=== PATIENT | male | born 1985 | race Caucasian/White ===

== ENCOUNTER 2017-08-03 13:41 | Emergency (ER) | payer MEDICAID ==
[~2017-08-03] VITALS: Ht 180.3 cm; Wt 65.5 kg
[2017-08-03 13:57] VITALS: BP 115/81
== END 2017-08-03 14:45 | disposition home or self-care (01) ==
LOC: ER 13:41
DX: R07.0 Pain in throat (principal); F12.90 Cannabis use, unspecified, uncomplicated; Z87.891 Personal history of nicotine dependence
CPT/HCPCS: 99281

== ENCOUNTER 2017-08-13 15:19 | Emergency (ER) | payer MEDICAID ==
[~2017-08-13] VITALS: Ht 180.3 cm; Wt 49.0 kg
[2017-08-13 18:59] VITALS: BP 142/108
[2017-08-13] MEDS ORDERED: PANT-47 PO (20:14)
== END 2017-08-13 20:24 | disposition home or self-care (01) ==
LOC: ER 15:20
DX: J02.9 Acute pharyngitis, unspecified (principal); F12.90 Cannabis use, unspecified, uncomplicated
CPT/HCPCS: 99283

== ENCOUNTER 2017-08-20 07:28 | Emergency (ER) | payer MEDICAID, OTHER ==
[~2017-08-20] VITALS: Ht 182.9 cm; Wt 68.2 kg
[~2017-08-20 07:28] MED LIST: PANT-47 PO
[2017-08-20 08:02] VITALS: BP 145/76
[2017-08-20] MEDS ORDERED: NYST1000 PO (08:17)
== END 2017-08-20 09:38 | disposition home or self-care (01) ==
LOC: ER 07:29
DX: B37.9 Candidiasis, unspecified (principal); F12.90 Cannabis use, unspecified, uncomplicated; Z79.899 Other long term (current) drug therapy
CPT/HCPCS: 99283

== ENCOUNTER 2017-09-02 09:49 | Emergency (ER) | payer BC ==
[~2017-09-02] VITALS: Ht 180.3 cm; Wt 63.0 kg
[2017-09-02 10:11] VITALS: BP 138/85
== END 2017-09-02 12:09 | disposition home or self-care (01) ==
LOC: ER 09:50
DX: J02.9 Acute pharyngitis, unspecified (principal); F12.90 Cannabis use, unspecified, uncomplicated
CPT/HCPCS: 87070; 99284

== ENCOUNTER 2017-09-08 13:22 | Emergency (ER) | payer BC ==
[~2017-09-08] VITALS: Ht 180.3 cm; Wt 66.5 kg
[2017-09-08] MEDS ORDERED: ketorolac trometh inj. 60 MG/2 ML VIAL IM ONE (14:40)
[2017-09-08 14:59] VITALS: BP 139/88
== END 2017-09-08 15:00 | disposition home or self-care (01) ==
LOC: ER 13:23
DX: R51 Headache (principal); R07.89 Other chest pain; H53.149 Visual discomfort, unspecified; F12.90 Cannabis use, unspecified, uncomplicated
CPT/HCPCS: 93005; 96372; 99283; J1885

== ENCOUNTER 2017-09-10 15:00 | Emergency (ER) | payer BC ==
[~2017-09-10] VITALS: Ht 180.3 cm; Wt 66.0 kg
[2017-09-10 16:35] VITALS: BP 118/67
== END 2017-09-10 16:44 | disposition home or self-care (01) ==
LOC: ER 15:14
DX: J31.2 Chronic pharyngitis (principal); G89.29 Other chronic pain; R51 Headache; F12.90 Cannabis use, unspecified, uncomplicated
CPT/HCPCS: 99281

== ENCOUNTER 2017-09-13 18:41 | Emergency (ER) | payer BC ==
[~2017-09-13] VITALS: Ht 182.9 cm; Wt 71.0 kg
[2017-09-13] MEDS ORDERED: PERM60CR4 TOP (18:56)
[2017-09-13 19:34] VITALS: BP 136/86
== END 2017-09-13 19:36 | disposition home or self-care (01) ==
LOC: ER 18:41
DX: B86 Scabies (principal); F12.90 Cannabis use, unspecified, uncomplicated
CPT/HCPCS: 99282

== ENCOUNTER 2017-09-20 10:08 | Emergency (ER) | payer BC ==
[~2017-09-20] VITALS: Ht 180.3 cm; Wt 67.0 kg
[~2017-09-20 10:08] MED LIST changes: -PANT-47 PO; +PERM60CR4 TOP
[2017-09-20 10:20] VITALS: BP 153/90
[2017-09-20] MEDS ORDERED: CefTRIAXone 1000mg IM Kit (w/lidocaine diluent) IM ONE (10:25)
[2017-09-20] MEDS ORDERED: azithromycin 250mg tablet PO ONE (10:25)
== END 2017-09-20 10:54 | disposition home or self-care (01) ==
LOC: ER 10:09
DX: A64 Unspecified sexually transmitted disease (principal); F12.90 Cannabis use, unspecified, uncomplicated
CPT/HCPCS: 36415; 87491; 87591; 96372; 99284; J0696

== ENCOUNTER 2017-10-01 17:20 | Emergency (ER) | payer BC ==
[~2017-10-01] VITALS: Ht 180.3 cm; Wt 66.5 kg
[2017-10-01 18:40] VITALS: BP 142/98
== END 2017-10-01 19:14 | disposition home or self-care (01) ==
LOC: ER 17:21
DX: R51 Headache (principal); F12.90 Cannabis use, unspecified, uncomplicated; H57.13 Ocular pain, bilateral
CPT/HCPCS: 99283

== ENCOUNTER 2017-10-09 12:34 | Day surgery (SDC) | payer BC ==
[~2017-10-09] VITALS: Ht 180.3 cm; Wt 67.8 kg
[~2017-10-09 12:34] MED LIST changes: +BUPIVAcaine/PF 2.5mg/ml (0.25%) 10ml vial ONE; +LIDOcaine 1%/PF 5ML 10 MG/ML VIAL ONE
[2017-10-09] MEDS ORDERED: LIDOcaine 1%/PF 5ML 10 MG/ML VIAL ONE (12:35)
[2017-10-09 12:45] VITALS: BP 140/93
[2017-10-09] MEDS ORDERED: IBUP-1985 PO (13:08)
== END 2017-10-09 13:34 | disposition home or self-care (01) ==
LOC: SSTAY O 12:34
PROVIDERS: ATTEND Family Medicine
DX: R51 Headache (principal); Z53.8 Procedure and treatment not carried out for other reasons; R20.0 Anesthesia of skin; M62.81 Muscle weakness (generalized); G62.9 Polyneuropathy, unspecified; I10 Essential (primary) hypertension; F17.210 Nicotine dependence, cigarettes, uncomplicated; F12.90 Cannabis use, unspecified, uncomplicated; Z20.2 Contact with and (suspected) exposure to infections with a predominantly sexual mode of transmission; Z79.1 Long term (current) use of non-steroidal anti-inflammatories (NSAID); Z98.890 Other specified postprocedural states; Z79.899 Other long term (current) drug therapy
CPT/HCPCS: J2001; J3490

== ENCOUNTER 2017-10-12 08:01 | Day surgery (SDC) | payer BC ==
[2017-10-12] VITALS (7 sets, daily range): BP systolic 115–141; BP diastolic 67–90
[~2017-10-12] VITALS: Ht 180.3 cm; Wt 67.6 kg
[~2017-10-12 08:01] MED LIST changes: -BUPIVAcaine/PF 2.5mg/ml (0.25%) 10ml vial ONE; +IBUP-1985 PO; -LIDOcaine 1%/PF 5ML 10 MG/ML VIAL ONE
[2017-10-12 09:05] LABS: BASOPHILS % (AUTO) 0.6 % (0-1); EOSINOPHILS # (AUTO) 0.1 X10'3 (0-0.9); EOSINOPHILS % (AUTO) 2.9 % (0-6); HEMOGLOBIN 15.8 g/dl (14.0-17.9); LYMPHOCYTES % (AUTO) 44.4 % (21-51); MEAN CORPUSCULAR HEMOGLOBIN 33.6 PG (27.0-31.0); MEAN CORPUSCULAR HGB CONC 34.3 % (33.0-36.5); MEAN CORPUSCULAR VOLUME 98.1 FL (78-98); MEAN PLATELET VOLUME 7.9 FL (7.4-10.4); MONOCYTES # (AUTO) 0.4 X10'3 (0-0.9); MONOCYTES % (AUTO) 9.5 % (2-12); NEUTROPHILS # (AUTO) 1.9 X10'3 (1.8-7.7); NEUTROPHILS % (AUTO) 42.6 % (42-75); PLATELET COUNT 190 X10'3 (140-440); RED BLOOD COUNT 4.69 X10'6 (4.70-6.10); RED CELL DISTRIBUTION WIDTH 12.1 % (11.5-14.5); WHITE BLOOD COUNT 4.5 X10'3 (4.5-11.0)
[2017-10-12 09:15] LABS: INR 1.1 INR; PROTHROMBIN TIME 11.4 SECONDS (9.0-12.0)
[2017-10-12] MEDS ORDERED: LIDOcaine 1%/PF 5ML 10 MG/ML VIAL ONE (09:43)
[2017-10-12] MEDS ORDERED: HYDROcodone/acetaminophen 5mg/325mg tablet PO PRN (10:20)
[2017-10-12 10:28] LABS: RHEUM FACTOR QUAL REFLEX TITER NEGATIVE (Neg)
[2017-10-12 10:43] LABS: ALANINE AMINOTRANSFERASE 28 U/L (12-78); ALBUMIN 4.2 G/DL (3.4-5.0); ALBUMIN/GLOBULIN RATIO 1.5 (1.1-1.5); ALKALINE PHOSPHATASE 49 IU/L (46-116); ANION GAP 8 (8-16); ASPARTATE AMINO TRANSFERASE 16 U/L (10-37); BILIRUBIN,TOTAL 1.2 MG/DL (0.1-1.0); BLOOD UREA NITROGEN 11 MG/DL (7-18); BUN/CREATININE RATIO 11.2 (5.4-32.0); CHLORIDE 103 MMOL/L (99-107); CREATININE 0.98 MG/DL (0.60-1.10); GLUCOSE 98 MG/DL (70-104); SODIUM 138 MMOL/L (135-145); TOTAL CARBON DIOXIDE 26.8 MMOL/L (24-32); eGFR 88 ML/MIN
[2017-10-12 11:47] LABS: GLUCOSE,CSF 58 MG/DL (40-75); TOTAL PROTEIN,CSF 61 MG/DL (15-45)
[2017-10-12 12:02] LABS: APPEARANCE,CSF CLEAR; CSF RBC 0 /CU MM (0); CSF SUPERNATANT COLOR COLORLESS; CSF VOLUME 13 ML; CSF WBC CT 2 /CU MM (0-5); TUBE# COUNTED 4
[2017-10-12 12:03] LABS: APPEARANCE,CSF CLEAR; CSF RBC 3 /CU MM (0); CSF SUPERNATANT COLOR COLORLESS; CSF VOLUME 13 ML; CSF WBC CT 1 /CU MM (0-5); TUBE# COUNTED 1
[2017-10-12 12:04] LABS: APPEARANCE,CSF CLEAR; CSF RBC 1 /CU MM (0); CSF SUPERNATANT COLOR COLORLESS; CSF VOLUME 13 ML; CSF WBC CT 2 /CU MM (0-5); TUBE# COUNTED 2
[2017-10-12 12:05] LABS: APPEARANCE,CSF CLEAR; CSF RBC 1 /CU MM (0); CSF SUPERNATANT COLOR COLORLESS; CSF VOLUME 13 ML; CSF WBC CT 2 /CU MM (0-5); TUBE# COUNTED 3
[2017-10-13 11:16] LABS: IMMUNOGLOBULIN A, QN, SERUM 308 mg/dL (90-386); IMMUNOGLOBULIN G, QN, SERUM 724 mg/dL (700-1600); IMMUNOGLOBULIN M, QN, SERUM 103 mg/dL (20-172)
[2017-10-14 06:51] LABS: ANTINUCLEAR ANTIBODIES Negative (Negative)
[2017-10-14 09:53] LABS: ANGIOTESIN-CONVERTING ENZYME 24 U/L (14-82)
[2017-10-15 13:24] LABS: IMMUNOGLOBULIN M, QN, CSF 0.03 mg/dL (0.00-0.26)
[2017-10-15 18:05] LABS: IMMUNOGLOBULIN G, QN CSF 2.9 mg/dL (0.0-8.6)
== END 2017-10-12 12:46 | disposition home or self-care (01) ==
LOC: RAD 08:01 → SSTAY O 12:46
PROVIDERS: ATTEND Family Medicine
DX: G35 Multiple sclerosis (principal); R51 Headache; R20.0 Anesthesia of skin; G62.9 Polyneuropathy, unspecified; I10 Essential (primary) hypertension; G89.29 Other chronic pain; F17.210 Nicotine dependence, cigarettes, uncomplicated; F12.90 Cannabis use, unspecified, uncomplicated; M62.81 Muscle weakness (generalized); Z20.2 Contact with and (suspected) exposure to infections with a predominantly sexual mode of transmission; Z79.1 Long term (current) use of non-steroidal anti-inflammatories (NSAID); Z98.890 Other specified postprocedural states
CPT/HCPCS: 36415; 62270; 77003; 80053; 82040; 82042; 82164; 82607; 82784; 82945; 83873; 83916; 84157; 84166; 85025; 85610; 85651; 86038; 86334; 86335; 86361; 86430; 86592; 86617; 86762; 86765; 87102; 87210; 87798; 87899; 89051; J2001; 77002

== ENCOUNTER 2017-10-25 16:07 | Emergency (ER) | payer BC ==
[~2017-10-25] VITALS: Ht 180.3 cm; Wt 68.0 kg
[~2017-10-25 16:07] MED LIST changes: +ACET-2119 PO; -IBUP-1985 PO; +LISI-604 PO; -PERM60CR4 TOP; +PHE12.5T PO
[2017-10-25 16:21] VITALS: BP 144/88
[2017-10-25] MEDS ORDERED: normal saline 1000ML IV soln IVB ONE (18:50)
== END 2017-10-25 21:09 | disposition home or self-care (01) ==
LOC: ER 16:08
DX: R51 Headache (principal); F12.90 Cannabis use, unspecified, uncomplicated; Z79.899 Other long term (current) drug therapy
CPT/HCPCS: 99285; J7030

== ENCOUNTER 2018-01-31 14:22 | Emergency (ER) | payer BC, MEDICAID ==
[~2018-01-31] VITALS: Ht 180.3 cm; Wt 71.0 kg
[~2018-01-31 14:22] MED LIST changes: -ACET-2119 PO
[2018-01-31 14:35] VITALS: BP 122/95
== END 2018-01-31 14:52 | disposition home or self-care (01) ==
LOC: ER 14:22
DX: S06.9X0A Unspecified intracranial injury without loss of consciousness, initial encounter (principal); F12.90 Cannabis use, unspecified, uncomplicated; Z60.2 Problems related to living alone; Z79.899 Other long term (current) drug therapy; X58.XXXA Exposure to other specified factors, initial encounter; Y93.89 Activity, other specified; Y92.89 Other specified places as the place of occurrence of the external cause; Y99.8 Other external cause status
CPT/HCPCS: 99281

== ENCOUNTER 2018-02-14 11:16 | Emergency (ER) | payer MEDICAID ==
[~2018-02-14] VITALS: Ht 180.3 cm; Wt 69.0 kg
[2018-02-14 11:33] VITALS: BP 171/96
[2018-02-14] MEDS ORDERED: ketorolac trometh inj. 60 MG/2 ML VIAL IM ONE (12:15)
== END 2018-02-14 12:30 | disposition home or self-care (01) ==
LOC: ER 11:16
DX: M79.602 Pain in left arm (principal); F12.90 Cannabis use, unspecified, uncomplicated; Z88.2 Allergy status to sulfonamides; Z88.1 Allergy status to other antibiotic agents; Z79.899 Other long term (current) drug therapy
CPT/HCPCS: 96372; 99283; J1885

== ENCOUNTER 2018-03-12 07:41 | Outpatient (CLI) | payer MEDICAID | END 2018-03-12 23:59 | disposition home or self-care (01) | LOC: RAD 07:41 | DX: R51 Headache (principal); G97.1 Other reaction to spinal and lumbar puncture; I10 Essential (primary) hypertension | CPT/HCPCS: 95816 ==

== ENCOUNTER 2020-11-21 03:59 | Emergency (ER) | payer MEDICARE, MEDICAID ==
[~2020-11-21] VITALS: Ht 180.3 cm; Wt 66.3 kg
[~2020-11-21 03:59] MED LIST changes: -LISI-604 PO; +LISI-790 PO; -PHE12.5T PO; +PROM12.512 PO
[2020-11-21] MEDS ORDERED: gabapentin 400mg capsule PO STA (04:51)
[2020-11-21] MEDS ORDERED: GABA-534 PO (04:55)
[2020-11-21] MEDS ORDERED: ibuprofen tablet 400 MG TABLET PO ONE (04:55)
[2020-11-21] MEDS ORDERED: IBUP-1984 PO (04:55)
[2020-11-21 05:40] VITALS: BP 137/87
== END 2020-11-21 05:47 | disposition home or self-care (01) ==
LOC: ER 03:59
DX: M54.2 Cervicalgia (principal); F12.90 Cannabis use, unspecified, uncomplicated; Z72.89 Other problems related to lifestyle; Z60.2 Problems related to living alone; Z88.2 Allergy status to sulfonamides; Z88.1 Allergy status to other antibiotic agents; Z79.899 Other long term (current) drug therapy
CPT/HCPCS: 99283

== ENCOUNTER 2020-12-09 17:58 | Emergency (ER) | payer MEDICARE, MEDICAID ==
[~2020-12-09] VITALS: Ht 180.3 cm; Wt 68.2 kg
[~2020-12-09 17:58] MED LIST changes: +GABA-534 PO; +IBUP-1984 PO
[2020-12-09] MEDS ORDERED: tranexamic acid 1gm/0.7% sal. 100 ML IV ONE (18:25)
[2020-12-09 19:02] LABS: BASOPHILS % (AUTO) 0.9 % (0-1); EOSINOPHILS # (AUTO) 0.1 X10'3 (0-0.9); EOSINOPHILS % (AUTO) 2.2 % (0-6); HEMATOCRIT 41.8 % (42.0-52.0); HEMOGLOBIN 14.4 g/dl (14.0-17.9); LYMPHOCYTES # (AUTO) 2.5 X10'3 (1.1-4.8); LYMPHOCYTES % (AUTO) 50.1 % (21-51); MEAN CORPUSCULAR HEMOGLOBIN 33.2 PG (27.0-31.0); MEAN CORPUSCULAR HGB CONC 34.4 g/dL (33.0-36.5); MEAN CORPUSCULAR VOLUME 96.3 FL (78-98); MEAN PLATELET VOLUME 8.7 FL (7.4-10.4); MONOCYTES # (AUTO) 0.5 X10'3 (0-0.9); MONOCYTES % (AUTO) 10.1 % (2-12); NEUTROPHILS # (AUTO) 1.8 X10'3 (1.8-7.7); NEUTROPHILS % (AUTO) 36.7 % (42-75); PLATELET COUNT 216 X10'3 (140-440); RED BLOOD COUNT 4.34 X10'6 (4.70-6.10); RED CELL DISTRIBUTION WIDTH 12.6 % (11.5-14.5)
[2020-12-09 19:12] LABS: PARTIAL THROMBOPLASTIN TIME 27 SECONDS (22-32)
[2020-12-09 19:18] LABS: ALANINE AMINOTRANSFERASE 19 U/L (12-78); ALBUMIN 3.8 G/DL (3.4-5.0); ALBUMIN/GLOBULIN RATIO 1.2 (1.1-1.5); ALKALINE PHOSPHATASE 57 IU/L (46-116); ANION GAP 10 (8-16); ASPARTATE AMINO TRANSFERASE 13 U/L (10-37); BILIRUBIN,TOTAL 0.3 MG/DL (0.1-1.0); BLOOD UREA NITROGEN 18 MG/DL (7-18); BUN/CREATININE RATIO 17.6 (5.4-32.0); CALCIUM 8.7 MG/DL (8.5-10.1); CHLORIDE 107 MMOL/L (99-107); CREATININE 1.02 MG/DL (0.60-1.10); GLUCOSE 127 MG/DL (70-104); POTASSIUM 3.4 MMOL/L (3.5-5.1); SODIUM 144 MMOL/L (135-145); TOTAL CARBON DIOXIDE 27.3 MMOL/L (24-32); TOTAL PROTEIN 7.1 G/DL (6.4-8.2); eGFR 83 ML/MIN
--- NOTE | 2020-12-09 19:45 | NUR ---
PT SPITTING UP BRIGHT RED BLOOD FROM THROAT. PT STATES HE IS HAVING TO SPIT IT OUT EVERY 5-10 SECONDS AND CAN FEEL IT RUNNING DOWN HIS THROAT. PT AIRWAY PATENT BUT PT ENCOURAGED TO REST AIRWAY AND TRY NOT TO SPEAK. WILL CONTINUE TO EVALUATE
[2020-12-09 20:02] LABS: BASOPHILS # (AUTO) 0.1 X10'3 (0-0.2); EOSINOPHILS # (AUTO) 0.1 X10'3 (0-0.9); EOSINOPHILS % (AUTO) 1.7 % (0-6); HEMATOCRIT 41.3 % (42.0-52.0); HEMOGLOBIN 14.1 g/dl (14.0-17.9); LYMPHOCYTES # (AUTO) 2.1 X10'3 (1.1-4.8); LYMPHOCYTES % (AUTO) 38.5 % (21-51); MEAN CORPUSCULAR HEMOGLOBIN 33.1 PG (27.0-31.0); MEAN CORPUSCULAR HGB CONC 34.2 g/dL (33.0-36.5); MEAN CORPUSCULAR VOLUME 96.9 FL (78-98); MEAN PLATELET VOLUME 8.4 FL (7.4-10.4); MONOCYTES # (AUTO) 0.6 X10'3 (0-0.9); MONOCYTES % (AUTO) 11.6 % (2-12); NEUTROPHILS # (AUTO) 2.5 X10'3 (1.8-7.7); NEUTROPHILS % (AUTO) 47.2 % (42-75); PLATELET COUNT 201 X10'3 (140-440); RED BLOOD COUNT 4.27 X10'6 (4.70-6.10); RED CELL DISTRIBUTION WIDTH 12.8 % (11.5-14.5); WHITE BLOOD COUNT 5.4 X10'3 (4.5-11.0)
--- NOTE | 2020-12-09 22:00 | NUR ---
PT HAS STOPPED SPITTING UP BLOOD AND IS NOW BEING HELD FOR OBSERVATION FOR 24 HRS
[2020-12-10 06:25] VITALS: BP 98/56
== END 2020-12-10 06:26 | disposition home or self-care (01) ==
LOC: ER 17:59
DX: K91.61 Intraoperative hemorrhage and hematoma of a digestive system organ or structure complicating a digestive system procedure (principal); Z20.822 Contact with and (suspected) exposure to COVID-19; F12.90 Cannabis use, unspecified, uncomplicated; Z72.89 Other problems related to lifestyle; Z88.2 Allergy status to sulfonamides; Z88.1 Allergy status to other antibiotic agents; Z79.899 Other long term (current) drug therapy; Y83.8 Other surgical procedures as the cause of abnormal reaction of the patient, or of later complication, without mention of misadventure at the time of the procedure; Y73.3 Surgical instruments, materials and gastroenterology and urology devices (including sutures) associated with adverse incidents
CPT/HCPCS: 36415; 80053; 85025; 85610; 85730; 86885; 86900; 86901; 87635; 96365; 96366; 99285; C9803

== ENCOUNTER 2024-12-09 12:01 | Emergency (ER) | payer MEDICARE, MEDICAID ==
[~2024-12-09] VITALS: Ht 180.3 cm; Wt 69.4 kg
[~2024-12-09 12:01] MED LIST changes: -GABA-534 PO; +GABA-535 PO; -IBUP-1984 PO; -LISI-790 PO; +LISI5TAB22 PO
[2024-12-09 12:02] VITALS: TEMP 97.3
[2024-12-09 12:33] LABS: MEAN PLATELET VOLUME 7.7 FL (7.4-10.4); RED CELL DISTRIBUTION WIDTH 13.2 % (11.5-14.5)
[2024-12-09 12:48] LABS: CREATININE 0.92 MG/DL (0.60-1.10); TOTAL CARBON DIOXIDE 28.2 MMOL/L (24-32); eCRCL 105 ML/MIN; eGFR > 90 ML/MIN
[2024-12-09 13:05] LABS: BASOPHILS % (MANUAL) 1.0 % (0-1); EOSINOPHILS % (MANUAL) 1.0 % (0-6); LYMPHOCYTES % (MANUAL) 57.0 % (21-51); MONOCYTES % (MANUAL) 4.0 % (2-12); NEUTROPHILS % (MANUAL) 37.0 % (42-75); PLATELET ESTIMATE NORMAL
[2024-12-09] MEDS: ketorolac trometh 15mg/ml vial 15 MG/ML ML IV ONE (14:37)
[2024-12-09] MEDS: normal saline 1000ML IV soln IVB ONE (14:38)
[2024-12-09] MEDS ORDERED: iohexol 300mg/ml 100ml inj. ONE (15:11)
--- NOTE | 2024-12-09 16:07 | RADIOLOGY REPORT ---
Indication: LLQ pain with diffuse tenderness to palpation. Technique: CT axial images of the abdomen and pelvis are obtained with intravenous contrast. Coronal and sagittal reformats were obtained. Radiation Dose Information: CTDI volume is 8 mGy. Dose-length product is 396 mGy*cm Comparison: None FINDINGS: Lung bases demonstrate no pleural effusion. Adrenal glands, spleen, pancreas unremarkable. No enhancing hepatic lesion. No CT evidence for cholelithiasis. Kidneys demonstrate no hydronephrosis. Stomach is partially distended. Small bowel loops are normal in caliber. Moderate fluid distention of the large bowel. No secondary signs for appendicitis. Bowel wall thickening of the rectosigmoid and descending colon. Abdominal aorta normal in caliber. Bladder partially distended. No free pelvic fluid. No inguinal lymphadenopathy. No aggressive osseous process. [id number]-[id number] thoracolumbar degenerative disc disease most pronounced at L4-5. IMPRESSION: Moderate fluid distention large bowel could represent colitis, diarrheal state. Mild bowel wall thickening of the descending rectosigmoid colon, may represent colitis, inflammatory bowel disease
--- NOTE | 2024-12-09 16:20 | Physician Documentation ---
History of Present Illness Chief Complaint: Abdominal Pain Stated Complaint: MULTIPLE MED ISSUES Time Seen by MD: 13:54 Primary Medical Doctor: Shahnaz Veloz; Dr. Blackwood- neurologist Source: patient Mode of Arrival: POV Exam Limitations: no limitations HPI 39-year-old male presents with left lower quadrant pain. He was seen at [facility] yesterday and was discharged home. He reports that the pain has continued since. He was worried about being constipated so we did take some prune juice and did have a bout of diarrhea after the prune juice. Otherwise he has not been having any bowel irregularities. Denies any fevers, nausea or vomiting. States that the pain feels like a squeezing pressure sensation. Reports he did not receive any medication or imaging while he was at [facility] yesterday. Medication Reconciliation Allergies: Coded Allergies: Sulfa (Sulfonamide Antibiotics) (Verified Allergy, Intermediate, 12/09/24) amoxicillin (Verified Allergy, Intermediate, 12/09/24) Scheduled Gabapentin (Gabapentin), 1 CAP PO DAILY Lisinopril (Lisinopril), 1 TAB PO DAILY Scheduled PRN Promethazine Hcl (Phenergan), 12.5 MG PO 5XD PRN for nausea Past Medical History Past Medical History: No Pertinent History, Headache Past Surgical History: noncontributory Alcohol Use: Occasionally Drug Use: marijuana Lives with: Alone Lives In: Home Review of Systems All Other Systems at this time: Reviewed and Negative Physical Exam Vital Signs: RN Vital Signs have been reviewed: Yes, Temperature: 97.3, Source: Temporal, Heart Rate: 72, Respiratory Rate: 18, BP: 134/97, Pulse Oximetry: 100, Weight: 69.400 Oxygen Flow Rate: 0 Pulse Oximetry Reflects: adequate oxygenation Physical Exam General: Alert, no apparent distress. HEENT: PERRL, EOMI, no injection, moist mucous membranes. Neck: Full range of motion. Respiratory: Lungs clear, no respiratory distress. Chest: No accessory muscle use. Cardiovascular: Regular rate and rhythm, no murmurs. Gastrointestinal: LLQ firm, tender, nondistended. Bowels sounds present. No guarding or rebound tenderness. Extremities: Normal range of motion, no deformity. Neurologic: Oriented x4. Psychiatric: Normal mood and affect. Skin: Normal color, warm and dry. No edema, no ecchymosis. Progress Results/Orders Reviewed/noted all lab results: Yes Results/Orders Orders - MIKE SPARKS WAITER/WAITRESS FORMAL Saline Lock (12/09/24 ) Ct Abdomen Pelvis (12/09/24 14:13) Completed Orders - MIKE SPARKS WAITER/WAITRESS FORMAL Ct Abdomen Pelvis (12/09/24 14:13) Ketorolac Trometh 15mg/Ml Vial (Toradol (12/09/24 14:15) Normal Saline 1000ml (0.9% Sodium Chlori (12/09/24 14:15) Iohexol 300mg/Ml 100ml Inj. (Omnipaque-3 (12/09/24 15:11) Medications Received in ER Medications (Trade) Dose Ordered Sig/Amy Route PRN Reason Start Time Stop Time Status Last Admin Dose Admin (Toradol injection) 15 mg ONCE ONCE IV 12/09/24 14:15 12/09/24 14:16 DC 12/09/24 14:37 15 MG (0.9% sodium chloride (NS) 1000ml IV soln) 1,000 ml ONCE ONCE IVB 12/09/24 14:15 12/09/24 14:16 DC 12/09/24 14:38 1,000 ML Vital Signs 12/09/24 12/09/24 12/09/24 12/09/24 12:02 12:27 13:14 14:37 Temp 97.3 Pulse 117 85 Resp 16 18 16 B/P (MAP) 147/100 125/74 (91) Pulse Ox 100 97 O2 Flow Rate 0 0 12/09/24 14:40 Pulse 72 Resp 18 B/P (MAP) 134/97 (109) Pulse Ox 100 O2 Flow Rate 0 Laboratory Tests Test 12/09/24 12:23 White Blood Count 3.7 L Red Blood Count 4.92 Hemoglobin 15.6 Hematocrit 45.6 Mean Corpuscular Volume 92.7 Mean Corpuscular Hemoglobin 31.8 H Mean Corpuscular Hemoglobin Concent 34.3 Red Cell Distribution Width 13.2 Platelet Count 191 Mean Platelet Volume 7.7 Neutrophils (%) (Auto) 31.1 L Lymphocytes (%) (Auto) 54.9 H Monocytes (%) (Auto) 11.6 Eosinophils (%) (Auto) 1.5 Basophils (%) (Auto) 0.9 Neutrophils # (Auto) 1.1 L Lymphocytes # (Auto) 2.0 Monocytes # (Auto) 0.4 Eosinophils # (Auto) 0.1 Basophils # (Auto) 0.0 CBC Comment Differential Total Cells Counted 100 Neutrophils % (Manual) 37.0 L Lymphocytes % (Manual) 57.0 H Monocytes % (Manual) 4.0 Eosinophils % (Manual) 1.0 Basophils % (Manual) 1.0 Platelet Estimate Normal Red Blood Cell Morphology Normal Basophilic Stippling Sodium Level 141 Potassium Level 3.8 Chloride Level 105 Carbon Dioxide Level 28.2 Anion Gap 8 Blood Urea Nitrogen 7 Creatinine 0.92 Estimated GFR/1.73 m2 > 90 BUN/Creatinine Ratio 7.6 L Glucose Level 102 Calcium Level 8.4 L Total Bilirubin 1.3 H Aspartate Amino Transf (AST/SGOT) 16 Alanine Aminotransferase (ALT/SGPT) 21 Alkaline Phosphatase 54 Total Protein 6.9 Albumin 3.9 Globulin 3.0 Albumin/Globulin Ratio 1.3 Lipase 27 Chemistry Comments EKG/XRAY/CT/US/VASC/MRI CT : Impression CT abdomen and pelvis with contrast as interpreted by me shows: No free air, no free pelvic fluid, no bowel obstruction. Moderate fluid distention large bowel. Mild bowel wall thickening of the descending rectosigmoid colon. Medical Decision Making Additional information obtaine: old records Findings He is having left lower quadrant pain and this is his 2nd ER visit. His CBC shows leukopenia, elevated lymphocytes and low neutrophils. He was given Toradol for the pain and a 1 L normal saline bolus due to contrast. He refuses to give a urine sample at this time. I discussed this case with Dr. Enamorado who recommended further imaging such as a CT with contrast. CT of abdomen and pelvis was obtained with contrast and it shows Moderate fluid distention large bowel could represent colitis, diarrheal state. Mild bowel wall thickening of the descending rectosigmoid colon, may represent colitis, inflammatory bowel disease. I discussed this case again with Dr. Enamorado regarding the results and he recommends Augmentin oral antibiotics and discharged home. He is allergic to amoxicillin so we will be doing metronidazole instead. Patient reports that he has never had symptoms like this before and does not have a history of colitis or irritable bowel disease. Patient was given strict return instructions as well as follow up instructions. Differential Dx:Considerations: AAA, Angina/ND, Bowel obstruction, Constipation, Diverticular disease, Gastritis/PUD, GI hemorrhage, Hernia, Ischemic bowel, Urinary tract infection Departure Disposition: 01 HOME / SELF CARE / HOMELESS Impression: Primary Impression: Abdominal pain Additional Impression: Colitis Condition: Stable Discharge Instructions: Abdominal Pain, Adult, [id number] Additional Instructions: Please take all antibiotics as prescribed and finish the course. Return back here for any new or worsening symptoms. Follow up with her primary care provider within the next week. Drink plenty of fluids. Referrals: NO PRIMARY CARE PROVIDER (PCP) Prescriptions Metronidazole* (Flagyl*) 500 Mg Tablet 1 TAB PO Q12H for 7 Days, #14 TAB Prov: MIKE SPARKS 12/09/24 Education Educated: Patient Educated regarding: diagnosis, treatment, prognosis, need for follow up Additional Comment Medical Screen Exam This patient recieved a medical screening examination. After reviewing the individual's medical complaints with presenting symptoms and performing an appropriate physical examination, it was determined that no immediate life- threatening emergency medical condition is present. This individual is also not a women having contractions. Signature Scribe Signature: . Attestation: Scribed for Mike Sparks by Mike Spann NP . 12/09/24 16:30 Parts of this note were created using [employer] voice recognition software program. While efforts were made to correct any mistakes made by this voice recognition software program, nonsensical phrases may remain in this note. In addition, there may be errors and syntax, grammar, content and spelling. MIKE SPARKS Dec 09, 2024 16:20
[2024-12-09 16:22] VITALS: BP 136/97; PULSE 80; RESP 18; O2SAT 98
[2024-12-09] MEDS ORDERED: METR-159 PO (16:29)
== END 2024-12-09 16:37 | disposition home or self-care (01) ==
LOC: ER 12:02
DX: K52.9 Noninfective gastroenteritis and colitis, unspecified (principal); F12.90 Cannabis use, unspecified, uncomplicated; Z88.2 Allergy status to sulfonamides; Z88.1 Allergy status to other antibiotic agents; Z79.899 Other long term (current) drug therapy; Z72.89 Other problems related to lifestyle; Z60.2 Problems related to living alone
CPT/HCPCS: 36415; 74177; 80053; 83690; 85007; 85025; 96361; 96374; 99285; J1885; J7030; Q9967

== ENCOUNTER 2024-12-10 15:20 | Emergency (ER) | payer MEDICARE, MEDICAID ==
[~2024-12-10] VITALS: Ht 180.3 cm; Wt 70.4 kg
[~2024-12-10 15:20] MED LIST changes: +METR-159 PO
--- NOTE | 2024-12-10 15:47 | Physician Documentation ---
History of Present Illness ~ Chief Complaint: Weakness Stated Complaint: ABDOMINAL PAIN Time Seen by MD: 17:41 OK to notify your PCP?: Yes Primary Medical Doctor: Shahnaz Veloz; Dr. Blackwood- neurologist Source: patient Mode of Arrival: POV Exam Limitations: no limitations HPI 39-year-old male presents for all-over body weakness, tingling and numbness and dizziness for some time. He was seen here last night for colitis and started on antibiotics. NIH 0 Medication Reconciliation Allergies: Coded Allergies: Sulfa (Sulfonamide Antibiotics) (Verified Allergy, Intermediate, 12/10/24) amoxicillin (Verified Allergy, Intermediate, 12/10/24) Scheduled Gabapentin (Gabapentin), 1 CAP PO DAILY Lisinopril (Lisinopril), 1 TAB PO DAILY Metronidazole* (Flagyl*), 1 TAB PO Q12H Scheduled PRN Promethazine Hcl (Phenergan), 12.5 MG PO 5XD PRN for nausea Past Medical History Past Medical History: No Pertinent History, Headache Past Surgical History: noncontributory Alcohol Use: Occasionally Drug Use: marijuana Lives with: Alone Lives In: Home Physical Exam Vital Signs: RN Vital Signs have been reviewed: Yes, Temperature: 97.0, Source: Temporal, Heart Rate: 89, Respiratory Rate: 20, BP: 128/92, Pulse Oximetry: 98, Weight: 70.400 Oxygen Flow Rate: 0 Pulse Oximetry Reflects: adequate oxygenation Physical Exam General: Alert, no distress. HEENT: No injection, moist mucous membranes. Neck: Full range of motion. Respiratory: No respiratory distress, equal chest rise and fall. Chest: No accessory muscle use. Cardiovascular: Regular rate and rhythm. Gastrointestinal: Nondistended. Nontender Extremities: Normal range of motion, no deformity. Neurologic: Oriented x4. nonfocal Psychiatric: Normal mood and affect. Skin: Normal color, warm and dry. Progress Results/Orders Results/Orders Vital Signs 12/10/24 12/10/24 12/10/24 15:24 17:36 18:31 Temp 97.0 97.0 Pulse 89 62 Resp 20 16 B/P (MAP) 128/92 129/92 (104) Pulse Ox 98 98 O2 Flow Rate 0 0 Laboratory Tests Test 12/10/24 17:11 White Blood Count 4.4 L Red Blood Count 4.71 Hemoglobin 15.2 Hematocrit 43.6 Mean Corpuscular Volume 92.6 Mean Corpuscular Hemoglobin 32.3 H Mean Corpuscular Hemoglobin Concent 34.8 Red Cell Distribution Width 13.2 Platelet Count 191 Mean Platelet Volume 7.7 Neutrophils (%) (Auto) 37.2 L Lymphocytes (%) (Auto) 50.7 Monocytes (%) (Auto) 9.4 Eosinophils (%) (Auto) 2.0 Basophils (%) (Auto) 0.7 Neutrophils # (Auto) 1.6 L Lymphocytes # (Auto) 2.2 Monocytes # (Auto) 0.4 Eosinophils # (Auto) 0.1 Basophils # (Auto) 0.0 CBC Comment Sodium Level 141 Potassium Level 3.7 Chloride Level 107 Carbon Dioxide Level 28.8 Anion Gap 5 L Blood Urea Nitrogen 9 Creatinine 0.86 Estimated GFR/1.73 m2 > 90 BUN/Creatinine Ratio 10.5 Glucose Level 99 Lactic Acid Level 0.6 Calcium Level 8.6 Phosphorus Level 3.1 Magnesium Level 1.8 Troponin I High Sensitivity 4 Albumin 3.8 Chemistry Comments Medical Decision Making Additional information obtaine: N/A Findings Unremarkable exam and workup. Discharge with return precautions. Differential Dx:Considerations: Include: anemia, encephalopathy, Guillain- [place], labyrinthitis, myasathenia gravis, pulmonary embolus, TIA, vertigo central Departure Disposition: 01 HOME / SELF CARE / HOMELESS Impression: Primary Impression: Constipation Condition: Stable Discharge Instructions: Constipation, Adult Referrals: NO PRIMARY CARE PROVIDER (PCP) Education Educated: Patient Educated regarding: diagnosis, treatment, prognosis, need for follow up Additional Comment Medical Screen Exam This patient recieved a medical screening examination. After reviewing the individual's medical complaints with presenting symptoms and performing an appropriate physical examination, it was determined that no immediate life- threatening emergency medical condition is present. This individual is also not a women having contractions. Signature Scribe Signature: . Attestation: . MIKE SPARKS Dec 10, 2024 15:47 CATERINA WASSERMAN MD Dec 10, 2024 19:47
[2024-12-10 17:22] LABS: MEAN PLATELET VOLUME 7.7 FL (7.4-10.4); RED CELL DISTRIBUTION WIDTH 13.2 % (11.5-14.5)
--- NOTE | 2024-12-10 17:25 | ELECTROCARDIOGRAPH REPORT ---
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
[2024-12-10 17:36] LABS: CREATININE 0.86 MG/DL (0.60-1.10); PHOSPHORUS 3.1 MG/DL (2.3-4.5); TOTAL CARBON DIOXIDE 28.8 MMOL/L (24-32); eCRCL 114 ML/MIN; eGFR > 90 ML/MIN
[2024-12-10 18:31] VITALS: RESP 16
[2024-12-10 20:10] VITALS: BP 120/84; PULSE 70; TEMP 98.1; O2SAT 99
== END 2024-12-10 20:13 | disposition home or self-care (01) ==
LOC: ER 15:21
DX: K59.00 Constipation, unspecified (principal); F12.90 Cannabis use, unspecified, uncomplicated; Z88.1 Allergy status to other antibiotic agents; Z79.899 Other long term (current) drug therapy; Z72.89 Other problems related to lifestyle; Z60.2 Problems related to living alone; Z88.2 Allergy status to sulfonamides
CPT/HCPCS: 36415; 80048; 83605; 83735; 84100; 84484; 85025; 93005; 99284

== ENCOUNTER 2024-12-11 13:08 | Emergency (ER) | payer MEDICARE, MEDICAID ==
[~2024-12-11] VITALS: Ht 180.3 cm; Wt 68.2 kg
[2024-12-11 13:24] VITALS: BP 138/89; PULSE 65; RESP 16; TEMP 98.4; O2SAT 98
--- NOTE | 2024-12-11 16:13 | Physician Documentation ---
History of Present Illness General Chief Complaint: Headache Stated Complaint: MULTIPLE MED COMPLAINTS Time Seen by MD: 15:13 Primary Medical Doctor: Shahnaz Veloz; Dr. Blackwood- neurologist History of Present Illness Initial Comments 39-year-old male presents to the emergency department request an MRI of his brain because of brain fog and/or possible blood clot or tumor in his head. He specifically also believes that he has had blood volume loss from his brain. Patient does see a neurologist Dr. Blackwood. Seen in the emergency department with the last two days & several times before that. Most recently was seen in [facility] for colitis. Reports that his symptoms of N/V/D have resolved. He is grossly logically intact without headache, dizziness or unsteady gait. Patient does ramble along with some fictitious medical concerns not contributory in any fashion. No recent head injury, other illness, infection or recent travels. Medication Reconciliation Allergies: Coded Allergies: Sulfa (Sulfonamide Antibiotics) (Verified Allergy, Intermediate, 12/11/24) amoxicillin (Verified Allergy, Intermediate, 12/11/24) Scheduled Gabapentin (Gabapentin), 1 CAP PO DAILY Lisinopril (Lisinopril), 1 TAB PO DAILY Metronidazole* (Flagyl*), 1 TAB PO Q12H Scheduled PRN Promethazine Hcl (Phenergan), 12.5 MG PO 5XD PRN for nausea Past Medical History Past Medical History: No Pertinent History, Headache Past Surgical History: noncontributory Smoking: Non-Smoker Alcohol Use: Occasionally Drug Use: marijuana Lives with: Alone Lives In: Home Review of Systems All Other Systems at this time: Reviewed and Negative Psychiatric Scattered thoughts Physical Exam Physical Exam Vital Signs: RN Vital Signs have been reviewed: Yes, Temperature: 98.4, Source: Oral, Heart Rate: 65, Respiratory Rate: 16, BP: 138/89, Pulse Oximetry: 98, Weight: 68.180 Oxygen Flow Rate: 0 General Appearance: alert, WD/WN, no apparent distress Head: normal inspection; No: swelling, ecchymosis, deformity, tender Face: normal inspection Pupils/EOM/Fundus: PERRLA Nose: normal inspection Oropharynx: normal inspection Neurologic: oriented x4, basket hand weaver II-XII nml as tested, memory intact, oriented to time, oriented to person, oriented to place Motor / Sensory: no motor deficit, no sensory deficit, other (Negative Romberg, heel to coelho normal, rapid hand movement within normal limits, [id number], steady nonantalgic gait); No: sensory deficit, weak motor strength RUE, weak motor strength LUE, weak motor strength RLE Psychiatric: other (Blunted affect) Skin: normal color Lymphatic: no adenopathy Progress Results/Orders Results/Orders Vital Signs 12/11/24 13:24 Temp 98.4 Pulse 65 Resp 16 B/P (MAP) 138/89 Pulse Ox 98 O2 Flow Rate 0 Medical Decision Making Additional information obtaine: old records Findings 39-year-old male with request for MRI due to brain fog without clinical presenta tion. Remains grossly neurologically intact without focal neuro deficits. Has had two repeated neurologically exams while in the emergency department which were normal. No evidence of acute findings or change from patient's suspected baseline necessitating MRI or CT imaging. Has had laboratory evaluation to screen for electrolyte derangement due to recent colitis. Neurological exam remains unremarkable and labs are unremarkable. Patient encouraged to increase his fluid intake. Do not suspect differential diagnosis is such as pseudo tumor cerebri, tumor, mass, hydrocephalus, venous or arterial occlusion, epidural subdural or other cranial etiologies. Patient is provided reassurance. He has primary care physician and has been advised to follow up with his primary care physician for repeat evaluation. Discharged in the emergency department safe stable condition with a steady gait focal neurologically intact. Differential Diagnosis See above Departure Disposition: 01 HOME / SELF CARE / HOMELESS Impression: Primary Impression: General weakness Additional Impressions: Colitis Old Brain Injury Condition: Stable Additional Instructions: Today in the emergency department I have reviewed your labs in the last two days and they are reassuring. Additionally I reviewed your CT imaging which was also reassuring. I suspect your brain fog is secondary to mild dehydration only requiring oral hydration. Please follow up with your primary care physician for repeat evaluation and to return if worse thank you for visiting emergency department [facility]. Referrals: NO PRIMARY CARE PROVIDER (PCP) Education Educated: Patient Educated regarding: diagnosis, treatment Signature Scribe Signature: . Attestation: . LIBIA JONES PAC Dec 11, 2024 16:12
== END 2024-12-11 18:19 | disposition home or self-care (01) ==
LOC: ER 13:08
DX: K52.9 Noninfective gastroenteritis and colitis, unspecified (principal); R53.1 Weakness; F12.90 Cannabis use, unspecified, uncomplicated; Z88.2 Allergy status to sulfonamides; Z88.1 Allergy status to other antibiotic agents; Z79.899 Other long term (current) drug therapy; Z72.89 Other problems related to lifestyle
CPT/HCPCS: 99282